=== PATIENT | female | born 1990 | race Caucasian/White ===

== ENCOUNTER → 2020-04-22 | Outpatient (CLI) | payer SELFPAY ==
--- NOTE | 2020-04-22 15:51 | REP ---
INDICATION: BILATERAL WHOLE BREAST U/S. COMPARISON: None. TECHNIQUE: Bilateral breast sonography. FINDINGS: Heterogeneous fibroglandular background echotexture is seen bilaterally. No suspicious abnormality is observed. In the right breast, 4 cm from the nipple at the 10 o'clock position there is a 0.9 x 0.8 x 0.6 cm cyst containing a septation. No other focal abnormality is seen. IMPRESSION: BI-RADS category 2 benign findings. The Tyrer-Cuzick lifetime breast cancer risk estimate is 12.0%. <Electronically signed by Kendall Arceo > 04/22/20 6422
== END ==
LOC: M WHC 14:04
PROVIDERS: ATTEND Specialist
DX: R92.8 Other abnormal and inconclusive findings on diagnostic imaging of breast (principal); N63.11 Unspecified lump in the right breast, upper outer quadrant